=== PATIENT | female | born 1945 | race Caucasian/White ===

== ENCOUNTER → 2016-12-05 | Outpatient (CLI) | payer MEDICARE, OTHER | LOC: MAMO 11-25 11:00 | DX: Z12.31 Encounter for screening mammogram for malignant neoplasm of breast (principal) | CPT/HCPCS: G0202 ==

== ENCOUNTER → 2021-01-03 | Outpatient (CLI) | payer MEDICARE, OTHER ==
[2021-01-03 10:59] LABS: RED BLOOD COUNT 4.5 M/UL (4.00-5.10); WHITE BLOOD COUNT 6.9 K/UL (4.5-11.0)
[2021-01-04 07:11] LABS: VITAMIN D, 25-HYDROXY 50.1 ng/mL (30.0-100.0)
[2021-01-04 11:14] LABS: C-PEPTIDE, SERUM 5.7 ng/mL (1.1-4.4)
== END ==
LOC: LAB 09:17
PROVIDERS: Family Medicine
DX: N39.0 Urinary tract infection, site not specified (principal); R31.9 Hematuria, unspecified; R30.0 Dysuria; E11.9 Type 2 diabetes mellitus without complications; E78.5 Hyperlipidemia, unspecified; I10 Essential (primary) hypertension; E03.9 Hypothyroidism, unspecified; E55.9 Vitamin D deficiency, unspecified; J44.9 Chronic obstructive pulmonary disease, unspecified
CPT/HCPCS: 36415; 80053; 80061; 81001; 82043; 83880; 84439; 84443; 84681; 85027; 87077; 87086; 87186

== ENCOUNTER → 2021-02-20 | Outpatient (CLI) | payer MEDICARE, OTHER | LOC: KOH-I 09:20 | DX: J44.9 Chronic obstructive pulmonary disease, unspecified (principal); R91.8 Other nonspecific abnormal finding of lung field | CPT/HCPCS: 71250 ==

== ENCOUNTER → 2021-03-21 | Outpatient (CLI) | payer MEDICARE, OTHER | LOC: EXRD 03-13 13:00 | DX: M81.0 Age-related osteoporosis without current pathological fracture (principal) | CPT/HCPCS: 77080 ==

== ENCOUNTER → 2021-03-21 | Outpatient (CLI) | payer MEDICARE, OTHER | LOC: MAMO 03-13 14:00 | DX: Z12.31 Encounter for screening mammogram for malignant neoplasm of breast (principal) | CPT/HCPCS: 77063; 77067 ==

== ENCOUNTER → 2021-04-10 | Outpatient (CLI) | payer MEDICARE, OTHER | LOC: LAB 10:03 | PROVIDERS: Internal Medicine Nephrology | DX: E83.52 Hypercalcemia (principal); N18.2 Chronic kidney disease, stage 2 (mild) | CPT/HCPCS: 36415; 80053; 82570; 83970; 84156 ==

== ENCOUNTER → 2021-04-10 | Outpatient (CLI) | payer MEDICARE, OTHER | LOC: EXRD 10:54 | DX: N18.2 Chronic kidney disease, stage 2 (mild) (principal); E83.52 Hypercalcemia | CPT/HCPCS: 36415; 76775; 80053; 82570; 83970; 84156 ==

== ENCOUNTER → 2021-07-19 | Outpatient (CLI) | payer MEDICARE, OTHER ==
[~2021-07-19] MED LIST: CEPHALEXIN500 M1 PO
[2021-07-19 09:57] LABS: HEMOGLOBIN 14.6 gm/dl (12.3-15.3); RED BLOOD COUNT 4.87 M/UL (4.00-5.10); WHITE BLOOD COUNT 7.5 K/UL (4.5-11.0)
== END ==
LOC: LAB 09:28
PROVIDERS: Family Medicine
DX: I10 Essential (primary) hypertension (principal); E78.5 Hyperlipidemia, unspecified; E03.9 Hypothyroidism, unspecified; E55.9 Vitamin D deficiency, unspecified
CPT/HCPCS: 36415; 80053; 80061; 84439; 84443; 85027

== ENCOUNTER 2021-07-21 15:06 | Emergency (ER) | payer MEDICARE, OTHER ==
[2021-07-21 16:29] LABS: HEMOGLOBIN 14.6 gm/dl (12.3-15.3); RED BLOOD COUNT 4.66 M/UL (4.00-5.10); WHITE BLOOD COUNT 7.8 K/UL (4.5-11.0)
[2021-07-21] MEDS ORDERED: CEPHALEXIN500 M1 PO (20:11)
== END 2021-07-21 20:38 | disposition home or self-care (01) ==
LOC: ER1 15:06
PROVIDERS: Physician Assistant
DX: N39.0 Urinary tract infection, site not specified (principal); J44.9 Chronic obstructive pulmonary disease, unspecified; I12.9 Hypertensive chronic kidney disease with stage 1 through stage 4 chronic kidney disease, or unspecified chronic kidney disease; E11.22 Type 2 diabetes mellitus with diabetic chronic kidney disease; F17.210 Nicotine dependence, cigarettes, uncomplicated; N18.9 Chronic kidney disease, unspecified
CPT/HCPCS: 80053; 81001; 85025; 87077; 87086; 87186; 99283

== ENCOUNTER → 2021-12-25 | Outpatient (CLI) | payer MEDICARE, OTHER | LOC: LAB 08:55 | PROVIDERS: Internal Medicine Nephrology | DX: N18.2 Chronic kidney disease, stage 2 (mild) (principal); E83.52 Hypercalcemia | CPT/HCPCS: 36415; 80053; 82570; 83970; 84100; 84156 ==